=== PATIENT | female | born 1975 | race Caucasian/White ===

== ENCOUNTER 2017-01-16 17:53 | Inpatient (IN) ==
[2017-01-16] MEDS ORDERED: Mag Hydrox/Al Hydrox/Simeth 30 ML UDC PO PRN (19:13)
[2017-01-16] MEDS ORDERED: Haloperidol Lactate 5 MG/ML VIAL IM PRN (19:13)
[2017-01-16] MEDS ORDERED: *HR* LORazepam 1 MG TABLET PO PRN (19:13)
[2017-01-16] MEDS ORDERED: MOM Conc 10 ML UD.LIQ PO PRN (19:13)
[2017-01-16] MEDS ORDERED: *HR* LORazepam 2 MG/ML VIAL IM PRN (19:13)
[2017-01-16] MEDS ORDERED: hydrOXYzine pamoate 25 MG CAPSULE PO PRN (19:13)
[2017-01-16] MEDS: Ibuprofen 400 MG TABLET PO PRN (19:37)
[2017-01-16] MEDS: traZODone 50 MG TABLET PO PRN (21:06)
[2017-01-17] MEDS: traZODone 50 MG TABLET PO PRN (03:00)
[2017-01-17] MEDS: Nicotine 2 MG GUM BC PRN ×2 (09:10→17:21)
[2017-01-17] MEDS: Ibuprofen 400 MG TABLET PO PRN ×2 (09:11→16:03)
--- NOTE | 2017-01-17 10:22 | Psychiatry History & Physical ---
Date of Encounter: 01/18/17 Time of Encounter: 10:00 History of Present Illness Patient Stated Chief Complaint: Suicidal attempts by overdose Medicare Admission Attestation: For traditional Medicare patients the provided hospital inpatient services are reasonable and necessary and in the case of services not specified as inpatient -only under 42 CFR 419.22 (n), that they are appropriately provided as inpatient services in accordance 42 CFR 412.3. For Critical Access Hospital the patient may reasonably be expected to be discharged or transferred to a hospital within 96 hours after admission to the Critical Access Hospital. Admitted From: Hospital to Hospital Transfer (Transferred from [facility]) History of Present Illness: Ms. Priest is a 41 year old female transferred from [facility] on involuntary basis, for evaluation and treatment of suicidal attempts by overdose on Klonopin and alcohol. Alcohol level initially was 252 and tox screen was negative. Patient has a long psychiatric history and treatment as an outpatient at the [facility]. Patient denied any previous psychiatric hospitalization, she starts treatment when she was 20 years old and had a diagnosis of depressive disorder, bipolar, PTSD and schizoaffective disorder. Patient reported previous suicide attempt by overdose several years ago. Patient is grieving the of father year ago and continued to experience auditory and visual hallucinations related to his . Patient has 17 years old son. She is on disability. She admitted to using alcohol and THC on large amounts of caffeine. She has some college education and worked different jobs and has not worked since 2010. Past Med Surg Social Fam HX - Past Psychiatric History Psychiatric history: Reports: bipolar, depression, PTSD, prior suicide attempt, schizophrenia. Denies: previous psychiatric hospitalization Family psychiatric history: Unknown Family History of Suicide: Unknown - Past Surgical History Surgical History: hysterectomy - Social History Smoking Status: Former smoker Smokeless Tobacco Status: Yes (Nicorette gum) Alcohol use: occasionally Drug use: marijuana Medications & Allergies Cholecalciferol (Vitamin D3) [Vitamin D] 2,000 unit PO DAILY 01/16/17 [History] ClonazePAM [Klonopin] 1 mg PO TID 01/16/17 [History] HydrOXYzine Pamoate [Vistaril] 50 - 100 mg PO HS PRN 01/16/17 [History] Lamotrigine [Lamictal] 100 mg PO NOEMÍ 01/16/17 [History] Levomilnacipran HCl [Fetzima] 40 mg PO DAILY 01/16/17 [History] Lurasidone HCl [Latuda] 80 mg PO DAILY 01/16/17 [History] Allergies gabapentin [From Neurontin] Adverse Reaction (Verified 01/17/17 15:24) See Comments Suicidal Ideation Review of Systems Psychiatric: Reports: depression, suicidal ideation, auditory hallucinations, visual hallucinations, mood swings Mental Status Exam Patient orientation: Yes Person, Yes Time, Yes Place Level of alertness: Alert Patient appearance: Appropriate, Well Groomed, Obese Behavior: calm, cooperative Psychomotor activity: Normal Eye contact: Maintains Eye Contact Mood description: Anxious, Expansive, Labile Affect description: euthymic, labile, incongruent with mood Speech pattern: Normal rate, Normal rhythm, Normal tone, Excessive, Pressured Speech volume: Normal Thought process: Circumstantial, Flight of Ideas, Racing Thought content: No Suicidal ideation, No Homicidal ideation, No Overt delusions Perceptual disturbances: No Auditory hallucinations, No Visual hallucinations Attention span: Capable of Focused Attention Memory description: Grossly Intact Patient reliability: Questionable Historian Intelligence estimate: Average Judgment: Limited Insight: Partial Results - Vital Signs Vital signs: Temp Pulse Resp BP 97.8 F 77 16 116/82 01/17/17 09:00 01/17/17 09:00 01/17/17 09:00 01/17/17 09:00 Assessment and Plan (1) Bipolar disorder, curr episode mixed, severe, with psychotic features Current visit: Yes Status: Acute Plan: Admit inpatient for safety and stabilization, Close observation, Suicide Precautions per unit protocol, Encourage participation in unit milieu, Group Therapy, Monitor sleep, Monitor appetite Additional Plan: Medication will be verified and restarted except Klonopin. Discontinued and replaced with Vistaril when necessary. Risks, benefits, side effects, alternatives discussed w/pt: Yes Patient agreeable to treatment: Yes
[2017-01-17] MEDS ORDERED: hydrOXYzine pamoate 25 MG CAPSULE PO PRN (14:27)
[2017-01-17] MEDS: lamoTRIgine 100 MG TABLET PO SCH (16:04)
[2017-01-17] MEDS: Cholecalciferol (D-3) 1,000 UNIT TABLET PO SCH (16:04)
[2017-01-17] MEDS: LEVOMILNACIPRAN HCL 40 MG PO SCH (16:04)
[2017-01-18] MEDS: Nicotine 2 MG GUM BC PRN ×3 (05:20→19:24)
[2017-01-18] MEDS: Cholecalciferol (D-3) 1,000 UNIT TABLET PO SCH (08:50)
[2017-01-18] MEDS: LEVOMILNACIPRAN HCL 40 MG PO SCH (08:50)
[2017-01-18] MEDS: lamoTRIgine 100 MG TABLET PO SCH (08:50)
[2017-01-18] MEDS: Ibuprofen 400 MG TABLET PO PRN ×2 (09:30→17:12)
--- NOTE | 2017-01-18 13:09 | Psychiatry Progress Note ---
Date of Encounter: 01/18/17 Time of Encounter: 13:06 Subjective Interval history: Patient is seen for follow-up. Staff report she is compliant with her medication and denies any active suicidal ideation. Her sleep and appetite are improving, and she is participating in unit activities. She told me that she cannot consider suicide again because of her son and her dog. She said she did not want to disappoint people care about her. She is showing improvement . We will continue to monitor. Review of Systems Psychiatric: Reports: depression, suicidal ideation, auditory hallucinations, visual hallucinations, mood swings Objective: Exam Patient orientation: Yes Person, Yes Time, Yes Place Level of alertness: Alert Patient appearance: Appropriate, Well Groomed, Obese Behavior: calm, cooperative Psychomotor activity: Normal Eye contact: Maintains Eye Contact Mood description: Anxious, Expansive, Labile Affect description: congruent with mood, euthymic, labile Speech pattern: Normal rate, Normal rhythm, Normal tone, Excessive Speech volume: Normal Thought process: Logical, Linear, Circumstantial Thought content: No Suicidal ideation, No Homicidal ideation, No Overt delusions Perceptual disturbances: No Auditory hallucinations, No Visual hallucinations Judgment: Limited Insight: Partial Results - Vital Signs Vital Signs: Temp Pulse Resp BP 97.9 F 75 16 112/75 01/18/17 09:32 01/18/17 09:32 01/18/17 09:32 01/18/17 09:32 Assessment and Plan (1) Bipolar disorder, curr episode mixed, severe, with psychotic features Current visit: Yes Status: Acute Plan: Continue hospitalization, Close observation, Suicide Precautions per unit protocol, Encourage participation in unit milieu, Group Therapy, Monitor sleep, Monitor appetite Risks, benefits, side effects, alternatives discussed w/pt: Yes Patient agreeable to treatment: Yes Consult Discharge Plan - Plan Referrals: Sarah Aguilar [facility] [place] [Outside] - 01/25/17 1:15 pm (The above appointment is with Saranya Gardiner, psychiatric provider. You will also see Jessica Holden on 01/29/2017 at 11:00am.)
[2017-01-18] MEDS: traZODone 50 MG TABLET PO PRN (20:09)
[2017-01-19] MEDS: traZODone 50 MG TABLET PO PRN (01:44)
[2017-01-19] MEDS: lamoTRIgine 100 MG TABLET PO SCH (08:14)
[2017-01-19] MEDS: Cholecalciferol (D-3) 1,000 UNIT TABLET PO SCH (08:14)
[2017-01-19] MEDS: LEVOMILNACIPRAN HCL 40 MG PO SCH (08:19)
[2017-01-19] MEDS: Ibuprofen 400 MG TABLET PO PRN (09:16)
[2017-01-19] MEDS: Nicotine 2 MG GUM BC PRN (11:12)
--- NOTE | 2017-01-19 12:03 | Discharge Summary ---
Date of Encounter: 01/19/17 Time of Encounter: 12:03 Diagnosis - Discharge Diagnosis (1) Bipolar disorder, curr episode mixed, severe, with psychotic features Status: Acute (2) Alcohol dependence Status: Acute Qualifiers: Substance use status: uncomplicated Qualified Code(s): F10.20 - Alcohol dependence, uncomplicated Medications - Discharge Medications Prescriptions: TraZODone 50 mg PO HS PRN #30 tablet PRN Reason: Insomnia Cholecalciferol (Vitamin D3) [Vitamin D3] 2,000 unit PO DAILY 01/16/17 [History] HydrOXYzine Pamoate [Vistaril] 50 - 100 mg PO HS PRN 01/16/17 [History] Lamotrigine [Lamictal] 100 mg PO NOEMÍ 01/16/17 [History] Levomilnacipran HCl [Fetzima] 40 mg PO DAILY 01/16/17 [History] Lurasidone HCl [Latuda] 80 mg PO DAILY 01/16/17 [History] TraZODone 50 mg PO HS PRN #30 tablet 01/19/17 [Rx] Allergies gabapentin [From Neurontin] Adverse Reaction (Verified 01/17/17 15:24) See Comments Suicidal Ideation Provider Date of admission: 01/16/17 17:53 Primary care physician: PCP NO Discharging clinician: Nas Andrews Assessment and Plan - Patient/Caregiver Discharge Instructions Activity: resume usual activities as tolerated Diet: regular diet - Follow up Plan Follow up with: Sarah Aguilar [facility] [place] [Outside] - 01/25/17 1:15 pm (The above appointment is with Saranya Gardiner, psychiatric provider. You will also see Jessica Holden on 01/29/2017 at 11:00am.) Functional capacity at discharge: independent ambulation Overall status at discharge: Stable Disposition: Home, Self-Care Hospital Course Hospital course: Ms. Priest is a 41 year old female admitted for evaluation and treatment of suicide attempts by overdose on Klonopin and alcohol. For details ADMISSION please see H&P On the units patient was restarted on her medication, she participated in group activities, she reported improved sleep and appetite. She denied any suicidal ideation, her discharge plans were completed by the medical social worker. insemination worker contacted patient's mother and shared with her discharge plans and safety plans. Prior to discharge patient was medically stable, denied any suicidal thoughts and tolerating her medication without any side effects and/or come forward to see her family and follow-up with her therapist and - Time Spent with Patient Total time spent providing and/or coordinating discharge services: Less than 30 minutes Quality - Multiple Antipsychotics Patient discharged on 2 or more antipsychotic medications: No Procedures - Procedures Procedures: Medication Management, Crisis Stabilization, Supportive Therapy, Group Therapy, Psychoeducational Therapy Mental Status Exam - Mental Status Exam Patient orientation: Yes Person, Yes Time, Yes Place Level of alertness: Alert Patient appearance: Appropriate, Well Groomed, Obese Behavior: calm, cooperative Psychomotor activity: Normal Eye contact: Maintains Eye Contact Mood description: Euthymic/stable Affect description: congruent with mood, full range Speech pattern: Normal rate, Normal rhythm, Normal tone Speech Volume: Normal Thought process: Logical, Linear, Circumstantial Thought Content: No Suicidal ideation, No Homicidal ideation, No Overt delusions Perceptual Disturbances: No Auditory hallucinations, No Visual hallucinations Judgment: Limited Insight: Partial
[2017-01-22 10:43] VITALS: BP 119/78
== END 2017-01-19 14:00 | disposition home or self-care (01) | DRG 753 ==
LOC: 1ANU 17:53
PROVIDERS: ADMIT Psychiatry & Neurology Psychiatry; ATTEND Psychiatry & Neurology Psychiatry